=== PATIENT | female | born 1990 | race Caucasian/White ===

== ENCOUNTER 2016-11-11 17:02 | Emergency (ER) | payer BC ==
[2016-11-11 17:32] VITALS: BP 157/104
[2016-11-11] MEDS ORDERED: Bupivacaine 0.5%/EPINEPHrine 1:200,000 1.8 ML Cartridge INJECT ONE (18:16)
--- NOTE | 2016-11-11 18:24 | EDM.PDOC ---
ED HPI ENT - General Chief Complaint: ENT Problem Stated Complaint: TOOTHACHE Time Seen by Provider: 11/11/16 18:08 Source: Reports: Patient History Limitations: Reports: No limitations - History of Present Illness INITIAL COMMENTS - FREE TEXT/NARRATIVE: 26-year-old female with dental pain. She is called around and try to get into a dentist and is on the waiting list for tomorrow.She presents here tearful she is in so much pain. She states she has a fractured tooth and she had some food in it and so was using a toothbrush to try to brush without and then suddenly developed a severe lancinating pain. She has had no fever with this. - Related Data Allergies/ADRs: Allergies Allergy/AdvReac Type Severity Reaction Status Date / Time amphetamine aspartate Allergy Hypertensio Verified 04/24/16 15:36 [From Adderall] n amphetamine sulfate Allergy Hypertensio Verified 04/24/16 15:36 [From Adderall] n dextroamphetamine saccharate Allergy Hypertensio Verified 04/24/16 15:36 [From Adderall] n dextroamphetamine sulfate Allergy Hypertensio Verified 04/24/16 15:36 [From Adderall] n nitrofurantoin Allergy Nausea Verified 04/24/16 15:36 [From Macrobid] nitrofurantoin Allergy Nausea Verified 04/24/16 15:36 macrocrystalline [From Macrobid] Home Meds: Home Meds Methylphenidate HCl [Methylphenidate ER] 54 mg PO QAM 07/12/15 [History] Norethindrone [Emely-Be] 1 tab PO QAM 07/12/15 [History] Sertraline HCl [Sertraline HCl] 150 mg PO QAM 07/12/15 [History] 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 ED EXAM, ENT - Physical Exam Exam: See Below Exam Limited By: No limitations General Appearance: alert, WD/WN, moderate distress Ears: normal external exam Nose: normal inspection Mouth/Throat: Other (Tooth #31 is the one that is fractured and giving her trouble. He does have percussion tenderness present and some erythema at its base.) Neck: normal inspection, supple, non-tender, full range of motion Respiratory/Chest: no respiratory distress Cardiovascular: normal peripheral pulses, regular rate, rhythm, no edema, no gallop, no JVD, no murmur, no rub Course - Vital Signs Text/Narrative:: Using 1. cc Sensorcaine with epinephrine I blocked the inferior alveolar nerve on the right side. This provided some pain relief after about 5-10 minutes. Last Recorded V/S: Last Vital Signs Temp 37.1 C 11/11/16 17:49 Pulse 107 H 11/11/16 17:49 Resp 18 11/11/16 17:49 BP 157/104 H 11/11/16 17:49 Pulse Ox 100 11/11/16 17:49 - Orders/Labs/Meds Meds: Medications Discontinued Medications Generic Name Dose Route Start Last Admin Trade Name Saritha PRN Reason Stop Dose Admin Bupivacaine HCl/Epinephrine Bitart 1.8 ml 11/11/16 18:16 11/11/16 18:38 Marcaine 0.5%/Epinephrine 1:200,000 INJECT 11/11/16 18:17 1.8 ml ONETIME ONE Administration Departure - Departure Time of Disposition: 18:46 Disposition: Home, Self-Care 01 Condition: good Clinical Impression: Dental caries extending into dentin Forms: ED Department Discharge Additional Instructions: I hope you get in to see the dentist tomorrow as discussed. If you are unsuccessful then try to get in during the week if possible. And if you feel that you need more pain medications I would recommend you see your doctor.
== END 2016-11-11 19:01 | disposition home or self-care (01) ==
LOC: JP.ED 17:02
DX: K02.9 Dental caries, unspecified (principal); F41.9 Anxiety disorder, unspecified; Z79.899 Other long term (current) drug therapy; Z88.8 Allergy status to other drugs, medicaments and biological substances
CPT/HCPCS: 64400; 99283-25

== ENCOUNTER 2017-01-01 13:51 | Emergency (ER) | payer BC ==
[2017-01-01 14:23] VITALS: BP 138/80
--- NOTE | 2017-01-01 14:55 | EDM.PDOC ---
ED HPI GENERAL MEDICAL PROBLEM - General Chief Complaint: Genitourinary Problem Stated Complaint: POSSIBLE UTI Time Seen by Provider: 01/01/17 14:17 Source of Information: Reports: Patient History Limitations: Reports: No Limitations - History of Present Illness INITIAL COMMENTS - FREE TEXT/NARRATIVE: 26 yo female presents with 12 hours of dysuria. Has hx of UTI last being about a year ago. denies fever, chills, or flank pain. generally healthy lower abdominal Pain Score (Numeric/FACES): 3 - Related Data Allergies Allergy/AdvReac Type Severity Reaction Status Date / Time amphetamine aspartate Allergy Hypertensio Verified 01/01/17 14:27 [From Adderall] n amphetamine sulfate Allergy Hypertensio Verified 01/01/17 14:27 [From Adderall] n dextroamphetamine saccharate Allergy Hypertensio Verified 01/01/17 14:27 [From Adderall] n dextroamphetamine sulfate Allergy Hypertensio Verified 01/01/17 14:27 [From Adderall] n nitrofurantoin Allergy Nausea Verified 01/01/17 14:27 [From Macrobid] nitrofurantoin Allergy Nausea Verified 01/01/17 14:27 macrocrystalline [From Macrobid] Home Meds: Home Meds Methylphenidate HCl [Methylphenidate ER] 54 mg PO QAM 07/12/15 [History] Norethindrone [Emely-Be] 1 tab PO QAM 07/12/15 [History] Sertraline HCl [Sertraline HCl] 50 mg PO QAM 07/12/15 [History] 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: Psychiatric History: Reports: Anxiety Endocrine/Metabolic History: Reports: Diabetes, Gestational - Past Surgical History Female Surgical History: Reports: Section, Other (See Below) Other Female Surgeries/Procedures: bladder repair surgery Social & Family History - Tobacco Use Smoking Status *Q: Never Smoker - Alcohol Use Days Per Week of Alcohol Use: 0 - Recreational Drug Use Recreational Drug Use: No ED ROS GENERAL - Review of Systems Review Of Systems: See Below Constitutional: Denies: Fever, Chills Respiratory: Denies: Shortness of Breath Cardiovascular: Denies: Chest Pain : Reports: Dysuria, Frequency ED EXAM, GI/ABD - Physical Exam Exam: See Below Exam Limited By: No Limitations General Appearance: Alert, WD/WN, No Apparent Distress Head: Atraumatic, Normocephalic Respiratory/Chest: No Respiratory Distress, Lungs Clear, Normal Breath Sounds, No Accessory Muscle Use. No: Crackles, Rhonchi, Wheezing Cardiovascular: Regular Rate, Rhythm, No Murmur GI/Abdominal: Soft, Non-Tender Back Exam: Normal Inspection, Full Range of Motion. No: CVA Tenderness (R), CVA Tenderness (L) Neurological: Alert, Oriented Psychiatric: Normal Affect, Normal Mood Skin Exam: Warm, Dry, Intact Course - Vital Signs Last Recorded V/S: Last Vital Signs Temp 37.4 C 01/01/17 14:21 Pulse 92 01/01/17 14:21 Resp 13 01/01/17 14:21 BP 138/80 01/01/17 14:21 Pulse Ox 99 01/01/17 14:21 - Orders/Labs/Meds Orders: Active Orders 24 hr Category Date Time Status CULTURE URINE [RM] Stat Lab 01/01/17 14:56 Ordered Labs: Laboratory Tests 01/01/17 Range/Units 14:17 Urine Color Yellow Urine Appearance Cloudy Urine pH 6.0 (4.5-8.0) Ur Specific [place] 1.015 (1.008-1.030) Urine Protein Negative (NEGATIVE) mg/dL Urine Glucose (UA) Normal (NEGATIVE) mg/dL Urine Ketones Negative (NEGATIVE) mg/dL Urine Occult Blood Large (NEGATIVE) Urine Nitrite Positive H (NEGATIVE) Urine Bilirubin Negative (NEGATIVE) Urine Urobilinogen Normal (NORMAL) mg/dL Ur Leukocyte Esterase Negative (NEGATIVE) Urine RBC 10-20 H (0-5) Urine WBC 20-30 H (0-5) Ur Epithelial Cells Moderate Amorphous Sediment Few Urine Bacteria Many Urine Mucus Few Urine Other See note Urinalysis Comment Clue cells seen Departure - Departure Time of Disposition: 14:53 Disposition: Home, Self-Care 01 Condition: Good Clinical Impression: UTI, Urinary tract infectious disease - Discharge Information Instructions: Urinary Tract Infection, Adult, [id number] Referrals: Mina Guerrero MD [Primary Care Provider] - Forms: ED Department Discharge Additional Instructions: Bactrim DS twice daily for 3 days urine culture pending increase fluid intake with goal 2 liters - My Orders Last 24 Hours: My Active Orders 01/01/17 14:56 CULTURE URINE [RM] Stat - Assessment/Plan Last 24 Hours: My Active Orders 01/01/17 14:56 CULTURE URINE [RM] Stat
== END 2017-01-01 15:02 | disposition home or self-care (01) ==
LOC: JP.ED 13:51
DX: N39.0 Urinary tract infection, site not specified (principal); F41.9 Anxiety disorder, unspecified; Z88.8 Allergy status to other drugs, medicaments and biological substances
CPT/HCPCS: 81001; 87086; 87088; 87186; 99284

== ENCOUNTER 2019-10-05 07:26 | Emergency (ER) | payer BC ==
[2019-10-05 07:42] VITALS: BP 159/90; PULSE 105
[2019-10-05] MEDS ORDERED: Ketorolac 60 MG/2 ML SDV IM ONE (07:53)
--- NOTE | 2019-10-05 07:58 | EDM.PDOC ---
ED HPI GENERAL MEDICAL PROBLEM - General Chief Complaint: General Stated Complaint: TOOTH PAIN Time Seen by Provider: 10/05/19 07:50 Source of Information: Reports: Patient, RN Notes Reviewed History Limitations: Reports: No Limitations - History of Present Illness INITIAL COMMENTS - FREE TEXT/NARRATIVE: 29-year-old female presents emergency department today with complaint of dental pain, she states the pain started on of this last week unfortunately she cannot get into the dentist till Monday she has not had any fevers - Related Data Allergies Allergy/AdvReac Type Severity Reaction Status Date / Time amphetamine aspartate Allergy Hypertensio Verified 10/05/19 07:51 [From Adderall] n amphetamine sulfate Allergy Hypertensio Verified 10/05/19 07:51 [From Adderall] n dextroamphetamine saccharate Allergy Hypertensio Verified 10/05/19 07:51 [From Adderall] n dextroamphetamine sulfate Allergy Hypertensio Verified 10/05/19 07:51 [From Adderall] n nitrofurantoin Allergy Nausea Verified 10/05/19 07:51 [From Macrobid] nitrofurantoin Allergy Nausea Verified 10/05/19 07:51 macrocrystalline [From Macrobid] Home Meds: Home Meds Methylphenidate HCl [Methylphenidate ER] 54 mg PO QAM 07/12/15 [History] Norethindrone [Emely-Be] 1 tab PO QAM 07/12/15 [History] Sertraline HCl 50 mg PO QAM 07/12/15 [History] Past Medical History HEENT History: Reports: 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: Psychiatric History: Reports: Anxiety Endocrine/Metabolic History: Reports: Diabetes, Gestational - Past Surgical History Head Surgeries/Procedures: Reports: None Female Surgical History: Reports: Section, Other (See Below) Other Female Surgeries/Procedures: bladder repair surgery Endocrine Surgical History: Reports: None Dermatological Surgical History: Reports: None Social & Family History - Tobacco Use Smoking Status *Q: Never Smoker Second Hand Smoke Exposure: No - Caffeine Use Caffeine Use: Reports: Coffee - Recreational Drug Use Recreational Drug Use: No ED ROS GENERAL - Review of Systems Review Of Systems: See Below Constitutional: Denies: Fever, Chills HEENT: Reports: Dental Pain GI/Abdominal: Reports: No Symptoms ED EXAM, GENERAL - Physical Exam Exam: See Below Free Text/Narrative:: Mouth mucosa is moist and pink no erythema or exudate known soft palate tongue is midline uvula is midline tooth #15 is capped it is tender to the touch Exam Limited By: No Limitations General Appearance: Alert, Mild Distress Neck: Normal Inspection Respiratory/Chest: No Respiratory Distress, Lungs Clear, Normal Breath Sounds, No Accessory Muscle Use, Chest Non-Tender Course - Vital Signs Last Recorded V/S: Last Vital Signs Temp 98.1 F 10/05/19 07:44 Pulse 105 H 10/05/19 07:44 Resp 17 10/05/19 07:44 BP 159/90 H 10/05/19 07:44 Pulse Ox 96 10/05/19 07:44 - Orders/Labs/Meds Orders: Active Orders 24 hr Category Date Time Status Ketorolac [Toradol] Med 10/05/19 07:53 Once 60 mg IM ONETIME ONE Departure - Departure Time of Disposition: 07:57 Disposition: Home, Self-Care 01 Condition: Fair Clinical Impression: Pain, dental - Discharge Information Referrals: Mina Guerrero MD [Primary Care Provider] - Additional Instructions: Take full course of antibiotics, use ibuprofen for baseline pain control use hydrocodone for breakthrough pain, please contact your dentist on Monday Sepsis Event Note - Evaluation Sepsis Screening Result: No Definite Risk - Focused Exam Vital Signs: Vital Signs Temp Pulse Resp BP Pulse Ox 10/05/19 07:44 98.1 F 105 H 17 159/90 H 96 10/05/19 07:41 98.1 F 105 H 17 159/90 H 96 Date Exam was Performed: 10/05/19 Time Exam was Performed: 07:53 - My Orders Last 24 Hours: My Active Orders 10/05/19 07:53 Ketorolac [Toradol] 60 mg IM ONETIME ONE - Assessment/Plan Last 24 Hours: My Active Orders 10/05/19 07:53 Ketorolac [Toradol] 60 mg IM ONETIME ONE Plan: Assessment Acuity = acute Site and laterality = dental pain Etiology = concern for dental abscess under tooth #15 Manifestations = none Location of injury = Home Lab values = none Plan Prescription written for hydrocodone 5/325 1 tab p.o. 3 times daily PRN total # 20, Augmentin 875 p.o. twice daily x10 days she will follow-up with her dentist on Monday This note was dictated using dragon voice recognition software please call with any questions on syntax or grammar.
== END 2019-10-05 08:12 | disposition home or self-care (01) ==
LOC: JP.ED 07:26
DX: K08.89 Other specified disorders of teeth and supporting structures (principal); F41.9 Anxiety disorder, unspecified; Z79.899 Other long term (current) drug therapy; Z88.8 Allergy status to other drugs, medicaments and biological substances
CPT/HCPCS: 96372; 99282; J1885

== ENCOUNTER 2019-10-07 20:14 | Emergency (ER) | payer BC ==
[2019-10-07 20:27] VITALS: BP 146/104; PULSE 87
--- NOTE | 2019-10-07 20:51 | EDM.PDOC ---
ED HPI GENERAL MEDICAL PROBLEM - General Chief Complaint: ENT Problem Stated Complaint: LT SIDE ABSCESS TOOTH Time Seen by Provider: 10/07/19 20:30 Source of Information: Reports: Patient History Limitations: Reports: No Limitations - History of Present Illness INITIAL COMMENTS - FREE TEXT/NARRATIVE: This is a 29-year-old female presents with concerns of dental pain. She was seen here this past weekend for the same. She reports that she believes she has an abscess below prior filling of the left upper molar. She was given pain meds and an antibiotic. She has plans for follow-up with a dentist tomorrow, this is been delayed due to multiple clinics closing due to coronavirus. She presents now for unrelenting pain. She has no fevers or chills. She reports the pain is well controlled with prescription pain medication without significant increase. - Related Data Allergies Allergy/AdvReac Type Severity Reaction Status Date / Time amphetamine aspartate Allergy Hypertensio Verified 10/07/19 20:28 [From Adderall] n amphetamine sulfate Allergy Hypertensio Verified 10/07/19 20:28 [From Adderall] n dextroamphetamine saccharate Allergy Hypertensio Verified 10/07/19 20:28 [From Adderall] n dextroamphetamine sulfate Allergy Hypertensio Verified 10/07/19 20:28 [From Adderall] n nitrofurantoin Allergy Nausea Verified 10/07/19 20:28 [From Macrobid] nitrofurantoin Allergy Nausea Verified 10/07/19 20:28 macrocrystalline [From Macrobid] Home Meds: Home Meds Methylphenidate HCl [Methylphenidate ER] 54 mg PO QAM 07/12/15 [History] Norethindrone [Emely-Be] 1 tab PO QAM 07/12/15 [History] Sertraline HCl 50 mg PO QAM 07/12/15 [History] Past Medical History HEENT History: Reports: Impaired Vision Genitourinary History: Reports: None 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: Psychiatric History: Reports: Anxiety Endocrine/Metabolic History: Reports: Diabetes, Gestational - Past Surgical History Head Surgeries/Procedures: Reports: None Female Surgical History: Reports: Section, Other (See Below) Other Female Surgeries/Procedures: bladder repair surgery Endocrine Surgical History: Reports: None Dermatological Surgical History: Reports: None Social & Family History - Tobacco Use Smoking Status *Q: Never Smoker - Caffeine Use Caffeine Use: Reports: None - Recreational Drug Use Recreational Drug Use: No ED ROS ENT - Review of Systems Review Of Systems: See Below Constitutional: Reports: No Symptoms HEENT: Reports: Dental Pain Respiratory: Reports: No Symptoms Cardiovascular: Reports: No Symptoms Endocrine: Reports: No Symptoms GI/Abdominal: Reports: No Symptoms : Reports: No Symptoms Musculoskeletal: Reports: No Symptoms Skin: Reports: No Symptoms Neurological: Reports: No Symptoms Psychiatric: Reports: No Symptoms Hematologic/Lymphatic: Reports: No Symptoms Immunologic: Reports: No Symptoms ED EXAM, ENT - Physical Exam Exam: See Below Exam Limited By: No Limitations General Appearance: Alert, No Apparent Distress Ears: Normal External Exam Nose: Normal Inspection Mouth/Throat: Other (site of pain is filling of left, upper molar. No surrounding swelling or erythema.) Head: Atraumatic, Normocephalic Neck: Normal Inspection Respiratory/Chest: Lungs Clear Cardiovascular: Regular Rate, Rhythm GI/Abdominal: Soft, Non-Tender Back: Normal Inspection Extremities: Normal Inspection Neurological: Alert, Oriented Psychiatric: Normal Affect, Normal Mood Skin: Warm, Dry Course - Vital Signs Last Recorded V/S: Last Vital Signs Temp 36.3 C 10/07/19 20:29 Pulse 87 10/07/19 20:29 Resp 18 10/07/19 20:29 BP 146/104 H 10/07/19 20:29 Pulse Ox 99 10/07/19 20:29 - Re-Assessments/Exams Free Text/Narrative Re-Assessment/Exam: This is a 29 yo female who presents with concerns of dental pain. 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 10/07/19 20:57 Departure - Departure Time of Disposition: 20:50 Disposition: Home, Self-Care 01 Clinical Impression: Tooth pain - Discharge Information Referrals: Mina Guerrero MD [Primary Care Provider] - Forms: ED Department Discharge Additional Instructions: Please follow up with your dentist as planned. Sepsis Event Note - Evaluation Sepsis Screening Result: No Definite Risk - Focused Exam Vital Signs: Vital Signs Temp Pulse Resp BP Pulse Ox 10/07/19 20:29 36.3 C 87 18 146/104 H 99 10/07/19 20:26 36.3 C 87 18 146/104 H 99 Date Exam was Performed: 10/07/19 Time Exam was Performed: 20:52
== END 2019-10-07 21:05 | disposition home or self-care (01) ==
LOC: JP.ED 20:14
DX: K08.89 Other specified disorders of teeth and supporting structures (principal); F41.9 Anxiety disorder, unspecified; Z88.8 Allergy status to other drugs, medicaments and biological substances
CPT/HCPCS: 99282

== ENCOUNTER 2020-04-12 11:32 | Emergency (ER) | payer BC ==
[2020-04-12 11:51] VITALS: BP 148/89; PULSE 98
--- NOTE | 2020-04-12 12:20 | EDM.PDOC ---
ED HPI GENERAL MEDICAL PROBLEM - General Chief Complaint: Genitourinary Problem Stated Complaint: BLADDER INFECTION Time Seen by Provider: 04/12/20 12:00 Source of Information: Reports: Patient History Limitations: Reports: No Limitations - History of Present Illness INITIAL COMMENTS - FREE TEXT/NARRATIVE: 29-year-old female with a history of recurring bladder infections, has had symptoms for 2 days. She usually takes Bactrim DS. No back pain or fever. Onset: Gradual Duration: Day(s): (2 days) Associated Symptoms: Denies: Fever/Chills, Malaise, Nausea/Vomiting, Shortness of Breath, Weakness Pelvic Pain Score (Numeric/FACES): 5 - Related Data Allergies Allergy/AdvReac Type Severity Reaction Status Date / Time amphetamine aspartate Allergy Hypertensio Verified 04/12/20 11:51 [From Adderall] n amphetamine sulfate Allergy Hypertensio Verified 04/12/20 11:51 [From Adderall] n dextroamphetamine saccharate Allergy Hypertensio Verified 04/12/20 11:51 [From Adderall] n dextroamphetamine sulfate Allergy Hypertensio Verified 04/12/20 11:51 [From Adderall] n nitrofurantoin Allergy Nausea Verified 04/12/20 11:51 [From Macrobid] nitrofurantoin Allergy Nausea Verified 04/12/20 11:51 macrocrystalline [From Macrobid] Home Meds: Home Meds Methylphenidate HCl [Methylphenidate ER] 54 mg PO QAM 07/12/15 [History] Norethindrone [Meely-Be] 1 tab PO QAM 07/12/15 [History] Sertraline HCl 25 mg PO QAM 07/12/15 [History] Past Medical History HEENT History: Reports: Impaired Vision Genitourinary History: Reports: 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: Psychiatric History: Reports: ADHD, Anxiety Endocrine/Metabolic History: Reports: Diabetes, Gestational - Infectious Disease History Infectious Disease History: Reports: None - Past Surgical History Head Surgeries/Procedures: Reports: None Female Surgical History: Reports: Section, Tubal Ligation, Other (See Below) Other Female Surgeries/Procedures: bladder repair surgery Endocrine Surgical History: Reports: None Dermatological Surgical History: Reports: None Social & Family History - Tobacco Use Smoking Status *Q: Never Smoker - Caffeine Use Caffeine Use: Reports: Coffee - Recreational Drug Use Recreational Drug Use: No ED ROS GENERAL - Review of Systems Review Of Systems: See Below Constitutional: Denies: Fever, Chills, Malaise HEENT: Reports: No Symptoms Respiratory: Denies: Shortness of Breath Cardiovascular: Denies: Chest Pain GI/Abdominal: Denies: Abdominal Pain, Nausea, Vomiting : Reports: Dysuria, Frequency, Urgency ED EXAM, RENAL/ - Physical Exam Exam: See Below Exam Limited By: No Limitations General Appearance: Alert, No Apparent Distress Respiratory/Chest: No Respiratory Distress GI/Abdominal: Non-Tender Back Exam: No: CVA Tenderness (R), CVA Tenderness (L) Neurological: Alert, Oriented Psychiatric: Normal Affect, Normal Mood Skin Exam: Warm, Dry Course - Vital Signs Last Recorded V/S: Last Vital Signs Temp 97.5 F 04/12/20 11:47 Pulse 98 04/12/20 11:47 Resp 18 04/12/20 11:47 BP 148/89 H 04/12/20 11:47 Pulse Ox 100 04/12/20 11:47 - Orders/Labs/Meds Orders: Active Orders 24 hr Category Date Time Status CULTURE URINE [RM] Stat Lab 04/12/20 12:15 Received Labs: Laboratory Tests 04/12/20 Range/Units 11:46 Urine Color Yellow (YELLOW) Urine Appearance Slightly cloudy A (CLEAR) Urine pH 7.0 (5.0-8.0) Ur Specific [place] 1.020 (1.008-1.030) Urine Protein Negative (NEGATIVE) mg/dL Urine Glucose (UA) Negative (NEGATIVE) mg/dL Urine Ketones Negative (NEGATIVE) mg/dL Urine Occult Blood Moderate H (NEGATIVE) Urine Nitrite Positive H (NEGATIVE) Urine Bilirubin Negative (NEGATIVE) Urine Urobilinogen 0.2 (0.2-1.0) EU/dL Ur Leukocyte Esterase Trace H (NEGATIVE) Urine RBC 5-10 H (0-5) Urine WBC 0-5 (0-5) Ur Epithelial Cells Rare Amorphous Sediment Not seen Urine Bacteria Many Urine Mucus Not seen - Re-Assessments/Exams Free Text/Narrative Re-Assessment/Exam: 04/12/20 12:19 UA was positive with positive nitrite, WBCs and bacteria. A culture was initiated and patient was placed on Bactrim DS twice daily for at least 3 days. Culture results will be communicated to the patient when available and she can return if worsening despite treatment. Departure - Departure Time of Disposition: 11:22 Disposition: Home, Self-Care 01 Clinical Impression: UTI, Urinary tract infectious disease - Discharge Information Instructions: Urinary Tract Infection, Adult Referrals: Mina Guerrero MD [Primary Care Provider] - Forms: ED Department Discharge Care Plan Goals: Take antibiotic twice daily for at least 3 days, recheck in 3 to 4 days if not improving satisfactorily. Return sooner if worsening such as fever, increased pain, or vomiting the medication. Sepsis Event Note (ED) - Evaluation Sepsis Screening Result: No Definite Risk - Focused Exam Vital Signs: Vital Signs Temp Pulse Resp BP Pulse Ox 04/12/20 11:47 97.5 F 98 18 148/89 H 100 - My Orders Last 24 Hours: My Active Orders 04/12/20 12:15 CULTURE URINE [RM] Stat - Assessment/Plan Last 24 Hours: My Active Orders 04/12/20 12:15 CULTURE URINE [RM] Stat
== END 2020-04-12 12:22 | disposition home or self-care (01) ==
LOC: JP.ED 11:32
DX: N39.0 Urinary tract infection, site not specified (principal); F41.9 Anxiety disorder, unspecified; F90.9 Attention-deficit hyperactivity disorder, unspecified type; Z79.899 Other long term (current) drug therapy; Z88.1 Allergy status to other antibiotic agents; Z88.8 Allergy status to other drugs, medicaments and biological substances
CPT/HCPCS: 81001; 87086; 87088; 87186; 99284

== ENCOUNTER 2020-07-13 17:17 | Emergency (ER) | payer BC ==
[2020-07-13 17:43] VITALS: BP 157/99; PULSE 110
--- NOTE | 2020-07-13 18:36 | EDM.PDOC ---
ED HPI GENERAL MEDICAL PROBLEM - General Chief Complaint: General Stated Complaint: tooth pain lower left Time Seen by Provider: 07/13/20 18:38 Source of Information: Reports: Patient History Limitations: Reports: No Limitations - History of Present Illness INITIAL COMMENTS - FREE TEXT/NARRATIVE: pt saw Dr Matthews and had a filling placed in her lower molar on the left. He did state that she might need a root canal and now that she is having severe pain an appointment was set up in [place] for wed. In the meantime she is having severe pain in the tooth area. She is presently on penicillin. Onset: Gradual, Other (pt has had several days of pain. ) Duration: Hour(s): Location: Reports: Face Associated Symptoms: Reports: No Other Symptoms Right Jaw Pain Score (Numeric/FACES): 6 - Related Data Allergies Allergy/AdvReac Type Severity Reaction Status Date / Time amphetamine aspartate Allergy Hypertensio Verified 07/13/20 17:45 [From Adderall] n amphetamine sulfate Allergy Hypertensio Verified 07/13/20 17:45 [From Adderall] n dextroamphetamine saccharate Allergy Hypertensio Verified 07/13/20 17:45 [From Adderall] n dextroamphetamine sulfate Allergy Hypertensio Verified 07/13/20 17:45 [From Adderall] n nitrofurantoin Allergy Nausea Verified 07/13/20 17:45 [From Macrobid] nitrofurantoin Allergy Nausea Verified 07/13/20 17:45 macrocrystalline [From Macrobid] Home Meds: Home Meds Methylphenidate HCl [Methylphenidate ER] 54 mg PO QAM 07/12/15 [History] Norethindrone [Emely-Be] 1 tab PO QAM 07/12/15 [History] Sertraline HCl 25 mg PO QAM 07/12/15 [History] Penicillin V Potassium 500 mg PO QID 07/13/20 [History] Past Medical History HEENT History: Reports: Impaired Vision Genitourinary History: Reports: None 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: Psychiatric History: Reports: ADHD, Anxiety Endocrine/Metabolic History: Reports: Diabetes, Gestational - Infectious Disease History Infectious Disease History: Reports: None - Past Surgical History Head Surgeries/Procedures: Reports: None HEENT Surgical History: Reports: None Female Surgical History: Reports: Section, Tubal Ligation, Other (See Below) Other Female Surgeries/Procedures: bladder repair surgery Endocrine Surgical History: Reports: None Dermatological Surgical History: Reports: None Social & Family History - Family History Family Medical History: No Pertinent Family History - Tobacco Use Tobacco Use Status *Q: Never Tobacco User Second Hand Smoke Exposure: No - Caffeine Use Caffeine Use: Reports: Coffee, Soda - Recreational Drug Use Recreational Drug Use: No ED ROS GENERAL - Review of Systems Review Of Systems: See Below Constitutional: Reports: No Symptoms HEENT: Reports: Dental Pain, Other (pt is having severe pain in the left lower molar. ) Respiratory: Reports: No Symptoms Cardiovascular: Reports: No Symptoms Endocrine: Reports: Polyuria GI/Abdominal: Reports: No Symptoms : Reports: No Symptoms Musculoskeletal: Reports: No Symptoms Skin: Reports: No Symptoms Neurological: Reports: No Symptoms ED EXAM, GENERAL - Physical Exam Exam: See Below Free Text/Narrative:: pt arrived with severe pain in the left lower molar area. Exam Limited By: No Limitations General Appearance: Alert, Anxious, Moderate Distress Ears: Normal TMs Throat/Mouth: Other (pt has redness without alot of swelling around the tooth. ) Head: Atraumatic Neck: Normal Inspection Respiratory/Chest: No Respiratory Distress Course - Vital Signs Last Recorded V/S: Last Vital Signs Temp 36.4 C 07/13/20 17:42 Pulse 110 H 07/13/20 17:42 Resp 16 07/13/20 17:42 BP 157/99 H 07/13/20 17:42 Pulse Ox 98 07/13/20 17:42 Departure - Departure Time of Disposition: 18:34 Disposition: Home, Self-Care 01 Condition: Fair Clinical Impression: Infected tooth - Discharge Information Referrals: Mina Guerrero MD [Primary Care Provider] - Forms: ED Department Discharge Care Plan Goals: keep appt in [place] for wed, cont penicillin, use tylenol and motrin during the day norco 5/325 q6h prn for pain at nite. Sepsis Event Note (ED) - Evaluation Sepsis Screening Result: No Definite Risk - Focused Exam Vital Signs: Vital Signs Temp Pulse Resp BP Pulse Ox 07/13/20 17:42 36.4 C 110 H 16 157/99 H 98
== END 2020-07-13 18:48 | disposition home or self-care (01) ==
LOC: JP.ED 17:17
DX: K04.7 Periapical abscess without sinus (principal); Z88.8 Allergy status to other drugs, medicaments and biological substances; Z88.1 Allergy status to other antibiotic agents
CPT/HCPCS: 99282; 99283

== ENCOUNTER 2021-05-03 17:16 | Emergency (ER) | payer BC ==
[2021-05-03 17:25] VITALS: BP 146/89; PULSE 99
[2021-05-03] MEDS ORDERED: Ketorolac 30 MG/ML SDV IM ONE (17:39)
--- NOTE | 2021-05-03 17:42 | EDM.PDOC ---
ED HPI GENERAL MEDICAL PROBLEM - General Chief Complaint: ENT Problem Stated Complaint: CRACKED TOOTH Time Seen by Provider: 05/03/21 17:36 Source of Information: Reports: Patient, RN Notes Reviewed History Limitations: Reports: No Limitations - History of Present Illness INITIAL COMMENTS - FREE TEXT/NARRATIVE: 30-year-old female presents emergency department day complaint of dental pain, she states she has a broken tooth she is scheduled for an extraction on Monday of this week, her biggest complaint is pain no fevers Right Lower Tooth/Teeth Pain Score (Numeric/FACES): 7 - Related Data Allergies Allergy/AdvReac Type Severity Reaction Status Date / Time amphetamine aspartate Allergy Hypertensio Verified 05/03/21 17:30 [From Adderall] n amphetamine sulfate Allergy Hypertensio Verified 05/03/21 17:30 [From Adderall] n dextroamphetamine saccharate Allergy Hypertensio Verified 05/03/21 17:30 [From Adderall] n dextroamphetamine sulfate Allergy Hypertensio Verified 05/03/21 17:30 [From Adderall] n nitrofurantoin Allergy Nausea Verified 05/03/21 17:30 [From Macrobid] nitrofurantoin Allergy Nausea Verified 05/03/21 17:30 macrocrystalline [From Macrobid] Home Meds: Home Meds Methylphenidate HCl [Methylphenidate ER] 54 mg PO QAM 07/12/15 [History] Norethindrone [Emely-Be] 1 tab PO QAM 07/12/15 [History] Sertraline HCl 25 mg PO QAM 07/12/15 [History] Past Medical History HEENT History: Reports: Impaired Vision [employer]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: Psychiatric History: Reports: ADHD, Anxiety Endocrine/Metabolic History: Reports: Diabetes, Gestational - Infectious Disease History Infectious Disease History: Reports: None - Past Surgical History Head Surgeries/Procedures: Reports: None HEENT Surgical History: Reports: None Female Surgical History: Reports: Section, Tubal Ligation, Other (See Below) Other Female Surgeries/Procedures: bladder repair surgery Endocrine Surgical History: Reports: None Dermatological Surgical History: Reports: None Social & Family History - Family History Family Medical History: No Pertinent Family History - Tobacco Use Tobacco Use Status *Q: Never Tobacco User - Caffeine Use Caffeine Use: Reports: Coffee, Soda ED ROS ENT - Review of Systems Review Of Systems: See Below Constitutional: Denies: Fever HEENT: Reports: Dental Pain ED EXAM, ENT - Physical Exam Exam: See Below Text/Narrative:: Mouth mucosa is moist and pink no erythema exudate known soft palate tongue is midline uvula is midline tooth #31 is broken partially missing tender to the touch around that area Exam Limited By: No Limitations General Appearance: Alert, Mild Distress Course - Vital Signs Last Recorded V/S: Last Vital Signs Temp 97.2 F 05/03/21 17:29 Pulse 99 05/03/21 17:29 Resp 16 05/03/21 17:29 BP 146/89 H 05/03/21 17:29 Pulse Ox 99 05/03/21 17:29 - Orders/Labs/Meds Orders: Active Orders 24 hr Category Date Time Status Ketorolac [Toradol] Med 05/03/21 17:39 Once 30 mg IM ONETIME ONE Meds: Medications Discontinued Medications Generic Name Dose Route Start Last Admin Trade Name Freq PRN Reason Stop Dose Admin Ketorolac Tromethamine 30 mg 05/03/21 17:39 Ketorolac 30 Mg/Ml Sdv IM 05/03/21 17:40 ONETIME ONE Departure - Departure Time of Disposition: 17:42 Disposition: Home, Self-Care 01 Condition: Fair Clinical Impression: Pain, dental - Discharge Information Instructions: Dental Pain Referrals: PCP,Marcos [Primary Care Provider] - Additional Instructions: Use ibuprofen for baseline pain control, use hydrocodone for breakthrough pain, please keep your follow-up appointment with dentistry on Monday Sepsis Event Note (ED) - Focused Exam Vital Signs: Vital Signs Temp Pulse Resp BP Pulse Ox 05/03/21 17:29 97.2 F 99 16 146/89 H 99 05/03/21 17:23 97.2 F 99 16 146/89 H 99 - My Orders Last 24 Hours: My Active Orders 05/03/21 17:39 Ketorolac [Toradol] 30 mg IM ONETIME ONE - Assessment/Plan Last 24 Hours: My Active Orders 05/03/21 17:39 Ketorolac [Toradol] 30 mg IM ONETIME ONE Plan: Assessment Acuity = acute Site and laterality = dental pain tooth #31 Etiology = broken and missing tooth Manifestations = none Location of injury = Home Lab values = none Plan Hydrocodone 5/325 1 tab p.o. 3 times daily as needed total #18 extraction in 48 hours This note was dictated using [employer] voice recognition software please call with any questions on syntax or grammar.
== END 2021-05-03 17:54 | disposition home or self-care (01) ==
LOC: JP.ED 17:16
DX: K03.81 Cracked tooth (principal); Z88.8 Allergy status to other drugs, medicaments and biological substances; Z88.1 Allergy status to other antibiotic agents; Z79.899 Other long term (current) drug therapy
CPT/HCPCS: 96372; 99282; J1885

== ENCOUNTER 2021-05-08 14:33 | Emergency (ER) | payer BC ==
[2021-05-08 15:12] VITALS: BP 155/94; PULSE 94
--- NOTE | 2021-05-08 15:58 | EDM.PDOC ---
ED HPI GENERAL MEDICAL PROBLEM - General Chief Complaint: ENT Problem Stated Complaint: DRY SOCKET IN MOUTH Time Seen by Provider: 05/08/21 15:30 Source of Information: Reports: Patient History Limitations: Reports: No Limitations - History of Present Illness INITIAL COMMENTS - FREE TEXT/NARRATIVE: 30-year-old female who was at the dentist 3 days ago and had a right molar extra ction, struggling with a dry socket. She saw the dentist again yesterday and had dry socket packing placed without much relief. Today she is having increased pain, she is run out of her hydrocodone and they would not give her any more yesterday. They did recommend calling today if she was having problems but when she called she went to a voicemail that had a full mailbox. She is not feverish, does not have significant swelling of the jaw, but is tearful and very uncomfortable. She is taking full dose ibuprofen. Duration: Waxing/Waning (Pain is waxed and waned in intensity over the last 24 hours) Location: Reports: Face (Right jaw) Associated Symptoms: Reports: No Other Symptoms Right Lower Oral/Mouth Pain Score (Numeric/FACES): 8 - Related Data Allergies Allergy/AdvReac Type Severity Reaction Status Date / Time amphetamine aspartate Allergy Hypertensio Verified 05/08/21 15:13 [From Adderall] n amphetamine sulfate Allergy Hypertensio Verified 05/08/21 15:13 [From Adderall] n dextroamphetamine saccharate Allergy Hypertensio Verified 05/08/21 15:13 [From Adderall] n dextroamphetamine sulfate Allergy Hypertensio Verified 05/08/21 15:13 [From Adderall] n nitrofurantoin Allergy Nausea Verified 05/08/21 15:13 [From Macrobid] nitrofurantoin Allergy Nausea Verified 05/08/21 15:13 macrocrystalline [From Macrobid] Home Meds: Home Meds Methylphenidate HCl [Methylphenidate ER] 54 mg PO QAM 07/12/15 [History] Norethindrone [Emely-Be] 1 tab PO QAM 07/12/15 [History] Sertraline HCl 25 mg PO QAM 07/12/15 [History] Amoxicillin 500 mg PO TID 05/08/21 [History] Hydrocodone/Acetaminophen [Lorcet 5-325 mg Tablet] 1 each PO Q4HR 05/08/21 [History] Past Medical History HEENT History: Reports: Impaired Vision Genitourinary History: Reports: None 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: Psychiatric History: Reports: ADHD, Anxiety Endocrine/Metabolic History: Reports: Diabetes, Gestational - Infectious Disease History Infectious Disease History: Reports: None - Past Surgical History Head Surgeries/Procedures: Reports: None HEENT Surgical History: Reports: None, Oral Surgery Female Surgical History: Reports: Section, Tubal Ligation, Other (See Below) Other Female Surgeries/Procedures: bladder repair surgery Endocrine Surgical History: Reports: None Dermatological Surgical History: Reports: None Social & Family History - Family History Family Medical History: No Pertinent Family History - Tobacco Use Tobacco Use Status *Q: Never Tobacco User - Caffeine Use Caffeine Use: Reports: Coffee - Recreational Drug Use Recreational Drug Use: No ED ROS ENT - Review of Systems Review Of Systems: See Below Constitutional: Reports: Malaise. Denies: Fever, Chills HEENT: Reports: Dental Pain Respiratory: Reports: No Symptoms Cardiovascular: Reports: No Symptoms GI/Abdominal: Reports: No Symptoms. Denies: Nausea, Vomiting Skin: Denies: Erythema Neurological: Denies: Headache ED EXAM, ENT - Physical Exam Exam: See Below Exam Limited By: No Limitations General Appearance: Alert, Mild Distress, Other (Patient is tearful, she is very uncomfortable) Eye Exam: Bilateral Eye: Normal Inspection Mouth/Throat: Other (Dry socket packing is still in place in the extracted molar of the right mandible. The surrounding gum looks healthy.) Respiratory/Chest: No Respiratory Distress Neurological: Alert, Oriented Psychiatric: Anxious, Tearful Skin: Warm, Dry Course - Vital Signs Last Recorded V/S: Last Vital Signs Temp 98.4 F 05/08/21 15:08 Pulse 94 05/08/21 15:08 Resp 16 05/08/21 15:08 BP 155/94 H 05/08/21 15:08 Pulse Ox 100 05/08/21 15:08 - Re-Assessments/Exams Free Text/Narrative Re-Assessment/Exam: 05/08/21 15:56 The packing was not removed to be repeated, we do not have dry socket packing available here. I encouraged her to continue with the regular dose of ibuprof en, the amoxicillin, and gave her 12 more hydrocodone to get her through till Monday when she can recheck with her dentist. I wrote her a note to be off Monday so she can go to the dentist if needed. Departure - Departure Time of Disposition: 16:29 Disposition: Home, Self-Care 01 Clinical Impression: Dry tooth socket - Discharge Information Instructions: Dental Dry Socket, [id number] Referrals: Mina Guerrero MD [Primary Care Provider] - Forms: ED Department Discharge Care Plan Goals: Continue with full dose ibuprofen, cool compresses to the jaw may help, and add hydrocodone as needed for extra pain control. Call the dentist for reevaluation on Monday if not improving satisfactorily. Sepsis Event Note (ED) - Evaluation Sepsis Screening Result: No Definite Risk
== END 2021-05-08 16:29 | disposition home or self-care (01) ==
LOC: JP.ED 14:33
DX: M27.3 Alveolitis of jaws (principal); Z88.8 Allergy status to other drugs, medicaments and biological substances; Z88.1 Allergy status to other antibiotic agents
CPT/HCPCS: 99283

== ENCOUNTER 2022-02-13 13:49 | Emergency (ER) | payer BC ==
[2022-02-13 15:06] VITALS: BP 135/87; PULSE 103
== END 2022-02-13 17:14 | disposition home or self-care (01) ==
LOC: JP.ED 13:49
DX: J02.9 Acute pharyngitis, unspecified (principal); Z88.8 Allergy status to other drugs, medicaments and biological substances; Z79.899 Other long term (current) drug therapy
CPT/HCPCS: 87081; 87880-QW; 99281; 99283

== ENCOUNTER 2024-01-08 22:46 | Emergency (ER) | payer BC ==
[2024-01-08 23:17] LABS: APPEARANCE,URINE SLIGHTLY CLOUDY (CLEAR); BILIRUBIN,URINE NEGATIVE (NEGATIVE); COLOR,URINE YELLOW (YELLOW); GLUCOSE,URINE NEGATIVE (NEGATIVE); KETONES,URINE NEGATIVE (NEGATIVE); LEUKOCYTE ESTERASE,URINE SMALL (NEGATIVE); NITRITE,URINE POSITIVE (NEGATIVE); OCCULT BLOOD,URINE MODERATE (NEGATIVE); PH,URINE 6.5 (5.0-8.0); PROTEIN,URINE NEGATIVE (NEGATIVE); UROBILINOGEN,URINE 0.2 EU/dL (0.2-1.0)
[2024-01-08 23:23] LABS: AMORPHOUS SEDIMENT,URINE NOT SEEN; BACTERIA,URINE MANY; EPITHELIAL CELLS,URINE FEW; MUCUS,URINE FEW
[2024-01-08 23:30] VITALS: BP 134/80; PULSE 107
== END 2024-01-08 23:53 | disposition home or self-care (01) ==
LOC: JP.ED 22:46
DX: N30.01 Acute cystitis with hematuria (principal); Z88.8 Allergy status to other drugs, medicaments and biological substances; Z88.1 Allergy status to other antibiotic agents; Z79.899 Other long term (current) drug therapy
CPT/HCPCS: 81001; 87086; 87088; 87186; 99283; 99284

== ENCOUNTER 2024-08-04 17:57 | Emergency (ER) | payer BC ==
[2024-08-04 18:46] VITALS: BP 141/83; PULSE 99
[2024-08-04 18:49] LABS: APPEARANCE,URINE CLEAR (CLEAR); BILIRUBIN,URINE NEGATIVE (NEGATIVE); COLOR,URINE YELLOW (YELLOW); GLUCOSE,URINE NEGATIVE (NEGATIVE); KETONES,URINE NEGATIVE (NEGATIVE); LEUKOCYTE ESTERASE,URINE NEGATIVE (NEGATIVE); NITRITE,URINE NEGATIVE (NEGATIVE); OCCULT BLOOD,URINE MODERATE (NEGATIVE); PROTEIN,URINE NEGATIVE (NEGATIVE); UROBILINOGEN,URINE 0.2 EU/dL (0.2-1.0)
[2024-08-04 18:55] LABS: AMORPHOUS SEDIMENT,URINE NOT SEEN; BACTERIA,URINE RARE; EPITHELIAL CELLS,URINE RARE; MUCUS,URINE NOT SEEN; WBC,URINE 0-5 (0-5)
== END 2024-08-04 19:15 | disposition home or self-care (01) ==
LOC: JP.ED 17:57
DX: N30.01 Acute cystitis with hematuria (principal); Z79.899 Other long term (current) drug therapy; Z88.6 Allergy status to analgesic agent; Z88.8 Allergy status to other drugs, medicaments and biological substances
CPT/HCPCS: 81001; 87086; 99283

== ENCOUNTER 2024-11-03 21:05 | Emergency (ER) | payer BC ==
[2024-11-03 21:22] VITALS: BP 137/81; PULSE 96
[2024-11-03 21:25] LABS: APPEARANCE,URINE CLEAR (CLEAR); BILIRUBIN,URINE NEGATIVE (NEGATIVE); COLOR,URINE YELLOW (YELLOW); GLUCOSE,URINE NEGATIVE (NEGATIVE); KETONES,URINE NEGATIVE (NEGATIVE); LEUKOCYTE ESTERASE,URINE NEGATIVE (NEGATIVE); NITRITE,URINE NEGATIVE (NEGATIVE); OCCULT BLOOD,URINE SMALL (NEGATIVE); PROTEIN,URINE NEGATIVE (NEGATIVE); UROBILINOGEN,URINE 0.2 EU/dL (0.2-1.0)
[2024-11-03 21:41] LABS: AMORPHOUS SEDIMENT,URINE NOT SEEN; BACTERIA,URINE RARE; EPITHELIAL CELLS,URINE RARE; MUCUS,URINE NOT SEEN; RBC,URINE 0-5 (0-5); WBC,URINE 0-5 (0-5)
== END 2024-11-03 21:57 | disposition home or self-care (01) ==
LOC: JP.ED 21:05
DX: R30.9 Painful micturition, unspecified (principal); Z88.8 Allergy status to other drugs, medicaments and biological substances; Z79.899 Other long term (current) drug therapy
CPT/HCPCS: 81001; 99283